=== PATIENT | female | born 2005 | race Caucasian/White ===

== ENCOUNTER 2025-08-04 04:03 | Emergency (ER) | payer MEDICAID ==
[2025-08-04] MEDS ORDERED: Naloxone 0.4 MG/ML SDV IVPUSH PRN (04:46)
[2025-08-04] MEDS: Ketorolac 60 MG/2 ML SDV IVPUSH STA (05:31)
[2025-08-04] MEDS: fentaNYL 100 MCG/2 ML SDV IVPUSH ONE (05:31)
[2025-08-04] MEDS: Ondansetron 4 MG/2 ML SDV IVPUSH ONE ×2 (05:37→05:47)
[2025-08-04] MEDS: Ondansetron 4 MG/2 ML SDV ONE (05:37)
[2025-08-04 05:41] LABS: BASOPHILS ABSOLUTE AUTO 0.0 K/mm3 (0.0-0.3); BASOPHILS PERCENT AUTO 0.3 % (0.0-1.0); EOSINOPHILS ABSOLUTE AUTO 0.1 K/mm3 (0.0-0.7); EOSINOPHILS PERCENT AUTO 1.0 % (0.0-5.0); IMMATURE GRAN ABSOLUTE AUTO 0.02 K/mm3 (0.00-0.05); IMMATURE GRAN PERCENT AUTO 0.2 % (0.0-0.4); LYMPHOCYTES ABSOLUTE AUTO 1.3 K/mm3 (2.0-8.8); LYMPHOCYTES PERCENT AUTO 13.2 % (50.0-65.0); MEAN PLATELET VOLUME 8.7 fl (9.4-12.3); MONOCYTES ABSOLUTE AUTO 1.2 K/mm3 (0.1-1.4); MONOCYTES PERCENT AUTO 12.1 % (2.0-10.0); NEUTROPHILS ABSOLUTE AUTO 7.2 K/mm3 (1.5-8.5); NEUTROPHILS PERCENT AUTO 73.2 % (35.0-45.0); NRBC ABSOLUTE 0.00 (0.00-0.03); NRBC PERCENT 0.0 % (0.0-0.2); PLATELET COUNT,PLT 242 K/mm3 (150-400); RED BLOOD CELL COUNT 4.65 M/mm3 (4.10-5.30); WHITE BLOOD CELL COUNT,WBC 9.78 K/mm3 (4.5-13.5)
[2025-08-04] MEDS ORDERED: Sodium Chloride 0.9% 10 ML Syringe FLUSH PRN (05:49)
[2025-08-04 05:54] LABS: INR 1.08
[2025-08-04 06:02] LABS: A/G RATIO 1.1 (1-2); ALANINE AMINOTRANSFERASE,ALT 33.0 U/L (14-59); ASPARTATE AMNIOTRANSFERASE,AST 18.0 U/L (15-37); BILIRUBIN TOTAL 1.0 mg/dL (0.2-1.0); BLOOD UREA NITROGEN,BUN 18.0 mg/dL (7-18); CARBON DIOXIDE,CO2 27.0 mEq/L (21-32); CHLORIDE,CL 103.0 mEq/L (98-107); CREATININE 0.9 mg/dL (0.55-1.02); EST CRCL DRUG DOSING (CG) 101.42 mL/min; ESTIMATED GFR 94.0 mL/min (>60); GLUCOSE RANDOM 98.0 mg/dL (70-99); POTASSIUM,K 3.6 mEq/L (3.5-5.1); PROTEIN TOTAL,TP 7.6 g/dl (6.4-8.2); SODIUM,NA 141.0 mEq/L (136-145)
[2025-08-04 06:04] LABS: ETHANOL BLOOD MEDICAL 0.0 gm% (0.00)
== END 2025-08-04 06:54 | disposition home or self-care (01) ==
LOC: JD.ED 04:03
DX: R10.9 Unspecified abdominal pain (principal); E86.0 Dehydration; Z79.899 Other long term (current) drug therapy
CPT/HCPCS: 36415; 80053; 80307; 83605; 83690; 83735; 84703; 85025; 85610; 96361; 96374; 96375; 99284; A9270; J1885; J2405; J3010; J7030